=== PATIENT | female | born 1950 | race African-American/Black ===

== ENCOUNTER → 2016-08-08 | Outpatient (CLI) | payer MEDICARE, OTHER | LOC: SP 09:53 | PROVIDERS: ATTEND Podiatrist Foot Surgery | DX: I70.25 Atherosclerosis of native arteries of other extremities with ulceration (principal) | CPT/HCPCS: 93925 ==

== ENCOUNTER 2016-10-08 09:00 | Day surgery (SDC) | payer MEDICARE, OTHER ==
[2016-10-03 10:14] LABS: ABSOLUTE BASOPHILS # (AUTO) 0.1 10^3/uL (0.0-0.2); ABSOLUTE EOSINOPHILS # (AUTO) 0.2 10^3/uL (0.0-0.6); ABSOLUTE LYMPHOCYTES (AUTO) 2.4 10^3/uL (0.5-4.7); ABSOLUTE MONOCYTES (AUTO) 0.6 10^3/uL (0.1-1.4); ABSOLUTE NEUT (AUTO) 4.1 10^3/uL (1.7-8.2); BASOPHILS % (AUTO) 0.8 % (0-2); EOSINOPHILS % (AUTO) 2.6 % (0-6); HEMATOCRIT 36.8 % (36.0-47.0); HEMOGLOBIN 11.7 g/dL (12.0-15.5); HGB HCT DIFFERENCE -1.7; LYMPHOCYTES % (AUTO) 32.1 % (13-45); MEAN CORPUSCULAR HEMOGLOBIN 23.5 pg (27.0-33.4); MEAN CORPUSCULAR HGB CONC 31.9 g/dL (32.0-36.0); MEAN CORPUSCULAR VOLUME 74 fl (80-97); MONOCYTES % (AUTO) 8.7 % (3-13); RED BLOOD COUNT 4.99 10^6/uL (3.72-5.28); RED CELL DISTRIBUTION WIDTH 18.6 % (11.5-14.0); SEGMENTED NEUTROPHILS % (AUTO) 55.8 % (42-78); WHITE BLOOD COUNT 7.4 10^3/uL (4.0-10.5)
[2016-10-03 10:25] LABS: APPEARANCE,URINE SLIGHTLY-CLOUDY; BILIRUBIN,URINE NEGATIVE (NEGATIVE); GLUCOSE, URINE NEGATIVE (NEGATIVE); KETONES,URINE NEGATIVE (NEGATIVE); LEUKOCYTE ESTERASE,URINE NEGATIVE (NEGATIVE); NITRITE,URINE NEGATIVE (NEGATIVE); PROTEIN,URINE NEGATIVE (NEGATIVE); URINE SPECIFIC GRAVITY 1.024; UROBILINOGEN,URINE NEGATIVE mg/dL (<2.0)
[2016-10-03 10:36] LABS: ANION GAP 17 (5-19); BLOOD UREA NITROGEN 19 mg/dL (7-20); CALCIUM 10.8 mg/dL (8.4-10.2); CARBON DIOXIDE 26 mmol/L (22-30); CHLORIDE 99 mmol/L (98-107); CREATININE RESULT 0.79 mg/dL (0.52-1.25); GLUCOSE 121 mg/dL (75-110); POTASSIUM 3.7 mmol/L (3.6-5.0)
--- NOTE | 2016-10-03 10:39 | EKG REPORT ---
SEVERITY:- NORMAL ECG - SINUS RHYTHM : Confirmed by: Martine Tapia MD 03-Oct-2016 10:38:33
[~2016-10-08 09:00] MED LIST: LACTATED RINGERS 1000 ML IV PRN
[2016-10-08] MEDS ORDERED: CLINDAMYCIN 600 MG/D5W RTU 600 MG/50 ML RTUPB IV ONE (09:36)
[2016-10-08] MEDS ORDERED: BUPIVACAINE HCL 0.5 % INJ/PF 30 ML SDV ONE ×2 (10:35→11:24)
[2016-10-08] MEDS ORDERED: IBUPROFEN INJ 800 MG/8 ML VIAL IV ONE (10:48)
[2016-10-08] MEDS ORDERED: FENTANYL CITRATE INJ/PF 100 MCG/2 ML AMPUL ONE (10:48)
[2016-10-08] MEDS ORDERED: PROPOFOL INJ 200 MG/20 ML VIAL IV ONE (10:48)
[2016-10-08] MEDS ORDERED: MIDAZOLAM 2 MG/2 ML INJ ONE (10:48)
[2016-10-08] MEDS ORDERED: ONDANSETRON HCL INJ/PF 4 MG/2 ML SDV ONE (10:49)
[2016-10-08] MEDS ORDERED: DEXAMETHASONE SOD PHOSPHATE INJ 4 MG/1 ML VIAL ONE (10:49)
[2016-10-08] MEDS ORDERED: MORPHINE SULFATE 10 MG/ML INJ ONE (10:49)
[2016-10-08] MEDS ORDERED: DIPHENHYDRAMINE HCL 50 MG/ML VIAL IV PRN (11:22)
[2016-10-08] MEDS ORDERED: PROMETHAZINE HCL INJ 25 MG/1 ML VIAL IV PRN ×2 (11:22)
[2016-10-08] MEDS ORDERED: FENTANYL CITRATE INJ/PF 100 MCG/2 ML AMPUL IV PRN ×3 (11:22)
[2016-10-08] MEDS ORDERED: ONDANSETRON HCL INJ/PF 4 MG/2 ML SDV IV PRN ×2 (11:22→12:04)
[2016-10-08] MEDS ORDERED: MEPERIDINE HCL/PF INJ 25 MG/1 ML DISP.SYRIN IV PRN (11:22)
[2016-10-08] MEDS ORDERED: TRAMADOL HCL 50 MG TABLET PO PRN (12:04)
--- NOTE | 2016-10-08 12:07 | PDOC DISCHARGE SUMMARY ---
Discharge Summary (SDC) - Discharge Final Diagnosis: Left hand PIP joint capsulotomy with lateral band relocation Date of Surgery: 10/08/16 Discharge Date: 10/08/16 Condition: Good Treatment or Instructions: Schedule Follow Up w/ Dr. Bryan Park @ [facility] to be seen in 10-14 days or as scheduled [place]: [place]: [place]: Keep splint clean/dry/intact until OT follow-up Ice and elevate May begin finger range of motion attempting to make full fist. Stool softener of choice when on pain medication. Prescriptions: Tramadol HCl [Ultram 50 mg Tablet] 50 mg PO Q6HP PRN #40 tablet PRN Reason: Respiratory Treatments at Home: Deep Breathing/Coughing Report the Following to Your Physician Immediately: Fever over 101 Degrees, Unusual Bleeding, Swelling, Warmth, Increased Soreness
--- NOTE | 2016-10-08 12:30 | Operative Report ---
Operative Report DATE OF SURGERY: 10/08/16 PREOPERATIVE DIAGNOSIS: Left 4th/5th [place]ck Deformity w/ PIP Contracture POSTOPERATIVE DIAGNOSIS: Same OPERATION: Left 4th/5th PIP Capsulotomy w/ Lateral Band Relocation SURGEON: ARIES MYERS ANESTHESIA: LMAC COMPLICATIONS: None ESTIMATED BLOOD LOSS: minimal PROCEDURE: Indication for above procedure: 66-year-old female who sustained a fall onto her outstretched left hand. She states since that time she has been unable to bend her ring and small finger. She underwent occupational therapy which provide her some improvement but continued to have difficulty grasping objects. At that point we discussed treatment options including operative versus nonoperative intervention. Risks and benefits were explained to the patient who verbalized understanding and consented to the procedure. Procedure In Detail: Patient was seen and evaluated in the preoperative holding area. The left upper extremity was initialized and marked. Patient received 2g of Ancef IV for bacterial prophylaxis. Patient was taken back to the operative room where transferred to the operative table and placed under general anesthesia. Once they were adequately anesthetized a nonsterile tourniquet was placed on the upper extremity. A surgical team debriefing was performed ensuring all instrumentation was available, the surgical procedure was discussed with possible concerns reviewed. The upper extremity was prepped with chlorhexidine and alcohol and draped in a sterile fashion. A timeout was done identifying correct patient, procedure and extremity everyone in attendance agree with this and verbalized no concerns. Digital block was performed utilizing 10 cc of 0.5 % Marcaine of the fourth and fifth digits. The extremity was exsanguinated the tourniquet was inflated to 250 mmHg. A curved skin incision was made dorsally over the PIP joint of the small finger. Blunt dissection was performed maintaining any venous vasculature along the skin flap. Any remaining vasculature was coagulated with bipolar cautery. The extensor mechanism was then identified. A longitudinal split was made along the lateral bands maintaining the integrity of the central slip. With flexion of the digit I was then able to flex the finger allowing for displacement of the lateral bands. I then carefully elevated the central slip and performed a PIP joint capsulotomy would provide any further passive PIP joint flexion. The extrinsic insertion along the ulnar aspect of the PIP joint was then released further providing passive motion of the PIP joint. I then turned my attention to the ring finger. A similar curved skin incision was once again made that she was quite with bipolar cautery. Extensor mechanism was identified and a longitudinal split was made on either side of the central slip allowing the location of the lateral bands with flexion. PIP joint capsulotomy was performed releasing the insertion of the proper collateral ligaments radially and ulnarly which provided further PIP joint flexion. Similar to the fifth digit the intrinsic mechanism was released along the radial and ulnar aspect of the ring finger. Tourniquet was then deflated. Compression was placed for 2 minutes and the peripheral vasculature was coagulated with bipolar cautery. Patient was then awoken from MAC anesthesia and was able to perform a full composite fist to the distal palmar crease. There is no evidence of residual swan-neck deformity. Wound was irrigated with normal saline. Skin was closed with interrupted 4-0 nylon suture. Additional 5 cc of 0.5% Marcaine was injected. Was dressed with Xeroform 4 x 4's and patient was placed in a dorsal blocking splint maintaining PIP joint flexion of 30. Sponge counts, instrument counts, needle counts counts were correct. Patient was then awoken from anesthesia. Transferred from the operating room table to the operating room stretcher. There was no intraoperative complications patient tolerated procedure well stable to PACU. Postoperative plan: Patient will begin occupational therapy within 24-48 hours. At that point she will begin focusing on active DIP, PIP and MCP joint flexion. Will be placed in a dorsal blocking splint at 20 and begin active flexion medially preventing extension of the joint in neutral. After 3 weeks patient may increase extension to 10. At 6 weeks they may return to unrestricted motion.
[2016-10-08 13:57] VITALS: BP 118/75
== END 2016-10-08 14:00 | disposition home or self-care (01) ==
LOC: OROUT 09:00
PROVIDERS: ATTEND Orthopaedic Surgery
PROC: 0LX80ZZ Transfer Left Hand Tendon, Open Approach (ICD-10-PCS; 2016-10-08)
PROC: 0RNX0ZZ Release Left Finger Phalangeal Joint, Open Approach (ICD-10-PCS; principal; 2016-10-08 11:15)
DX: M25.549 Pain in joints of unspecified hand (principal); M20.032 Swan-neck deformity of left finger(s); I10 Essential (primary) hypertension; E11.9 Type 2 diabetes mellitus without complications; D64.9 Anemia, unspecified; Z79.899 Other long term (current) drug therapy; Z79.01 Long term (current) use of anticoagulants; Z88.1 Allergy status to other antibiotic agents; Z79.82 Long term (current) use of aspirin; Z79.84 Long term (current) use of oral hypoglycemic drugs
CPT/HCPCS: 93005; 36415 ×2; 82962; 84132; 85025; 85610; 85730; 80048; 81001; 93010; 26525 ×2; 26497; J2250; J1100; J3010; J2405; J2704; J1741; 1810; J2270

== ENCOUNTER → 2016-11-05 | Outpatient (CLI) | payer MEDICARE, OTHER | LOC: OD 07:59 | PROVIDERS: ATTEND Surgery Vascular Surgery | DX: Z51.81 Encounter for therapeutic drug level monitoring (principal); Z79.899 Other long term (current) drug therapy | CPT/HCPCS: 36415; 82565 ==

== ENCOUNTER → 2017-01-23 | Outpatient (CLI) | payer MEDICARE, OTHER ==
--- NOTE | 2017-01-23 09:23 | WOMENS IMAGING REPORT ---
EXAM DESCRIPTION: BILAT SCREENING MAMMO W/CAD COMPLETED DATE/TIME: 01/23/2017 9:01 am REASON FOR STUDY: SCREENING MAMMO Z12.31 ENCNTR SCREEN MAMMOGRAM FOR MALIGNANT NEOPLASM OF [place]LEE COMPARISON: Multiple since 2009 TECHNIQUE: Standard craniocaudal and mediolateral oblique views of each breast recorded using digita l acquisition. LIMITATIONS: None. FINDINGS: No masses, calcifications or architectural distortion. No areas of suspicion. Read with the assistance of CAD. .[facility] - R2 Cenova Version 1.3 .[facility] - R2 Cenova Version 1.3 .[facility] - R2 Cenova Version 2.4 .[facility] [place] R2 Cenova Version 2.4 .[facility] - R2 Director Of Analytical Development Version 9.2 IMPRESSION: NORMAL MAMMOGRAM. BIRADS 1. BREAST DENSITY: c. The breasts are heterogeneously dense, which may obscure small masses. BIRAD: 1 NEGATIVE RECOMMENDATION: ROUTINE SCREENING COMMENT: The patient has been notified of the results by letter per SA requirements. Additional no tification policies are in place for contacting patient with suspicious or incomplete findings. Quality ID #[id number]: The [employer] recommends an annual screening mammogram for women aged 40 years or over. This facility utilizes a reminder system to ensure that all patients receive reminder letters, and/or direct phone calls for appointments. This includes reminders for routine scr eening mammograms, diagnostic mammograms, or other Breast Imaging Interventions when appropriate. Th is patient will be placed in the appropriate reminder system. The [employer] (A[employer]) has developed recommendations for screening MRI of the breast s in certain patient populations, to be used in conjunction with mammography. Breast MRI surveillanc e may be appropriate for women with more than 20% lifetime risk of developing breast cancer as deter mined by genetic testing, significant family history of the disease, or history of mantle radiation f or Hodgkins Disease. ACR Practice Guidelines 2008. TECHNICAL DOCUMENTATION: FINDING NUMBER: (1) ASSESSMENT: (1) JOB ID: [id number] [employer]- All Rights Reserved
== END ==
LOC: WI 08:38
PROVIDERS: ATTEND Family Medicine
DX: Z12.31 Encounter for screening mammogram for malignant neoplasm of breast (principal)
CPT/HCPCS: 77067; G0202

== ENCOUNTER 2017-05-06 08:29 | Outpatient (CLI) | payer MEDICARE, OTHER ==
[~2017-05-06 08:29] MED LIST changes: +ACETAMINOPHEN 325 MG TABLET PO PRN; +FERRIC CARBOXYMALTOSE 750 MG in NORMAL SALINE 250 ML IV PRN; -LACTATED RINGERS 1000 ML IV PRN; +NORMAL SALINE 250 ML IV PRN
[2017-05-06 10:06] VITALS: BP 105/57
== END 2017-05-06 10:15 | disposition home or self-care (01) ==
LOC: II 08:29 → 5TH 08:30 → II 09:20
PROVIDERS: ATTEND Internal Medicine Hematology & Oncology
PROC: 3E033GC Introduction of Other Therapeutic Substance into Peripheral Vein, Percutaneous Approach (ICD-10-PCS; principal; 2017-05-06)
DX: D50.0 Iron deficiency anemia secondary to blood loss (chronic) (principal); K90.9 Intestinal malabsorption, unspecified
CPT/HCPCS: 96374; J7050; J1439; 96367

== ENCOUNTER → 2017-05-08 | Outpatient (CLI) | payer MEDICARE, OTHER | LOC: II 08:13 | PROVIDERS: ATTEND Internal Medicine Hematology & Oncology | DX: D50.0 Iron deficiency anemia secondary to blood loss (chronic) (principal); K90.9 Intestinal malabsorption, unspecified ==

== ENCOUNTER 2017-05-15 07:50 | Outpatient (CLI) | payer MEDICARE, OTHER ==
[2017-05-15] MEDS ORDERED: NORMAL SALINE 250 ML IV PRN (08:02)
[2017-05-15] MEDS ORDERED: FERRIC CARBOXYMALTOSE 750 MG in NORMAL SALINE 250 ML IV PRN (08:03)
[2017-05-15 08:15] VITALS: BP 139/78
== END 2017-05-15 09:20 | disposition home or self-care (01) ==
LOC: II 07:50 → 5TH 07:51 → II 09:20
PROVIDERS: ATTEND Internal Medicine Hematology & Oncology
PROC: 3E033GC Introduction of Other Therapeutic Substance into Peripheral Vein, Percutaneous Approach (ICD-10-PCS; principal; 2017-05-15)
DX: D50.0 Iron deficiency anemia secondary to blood loss (chronic) (principal); K90.9 Intestinal malabsorption, unspecified
CPT/HCPCS: 96367; J7050; J1439; 96365

== ENCOUNTER 2018-02-09 22:47 | Emergency (ER) | payer MEDICARE, OTHER ==
[2018-02-10] MEDS ORDERED: KETOROLAC TROMETHAMINE INJ/PF 30 MG/1 ML SDV IM ONE (00:29)
--- NOTE | 2018-02-10 00:31 | ER Document Report ---
ED General - General Chief Complaint: Foot Pain Stated Complaint: FOOT PAIN Time Seen by Provider: 02/10/18 00:21 Notes: Patient 67-year-old female presents with complaint of pain on the bottom of her foot that started last 24 hours. She is a history of gout but says it feels different. She has a history of plantar fasciitis and says it feels very similar to that. No recent injuries or trauma in the last 24 hours. She says approximately week ago a chair did fall on her foot but she has not had any pain from that. No other complaints at this time. TRAVEL OUTSIDE OF THE [place] IN LAST 30 DAYS: No - Related Data Allergies/Adverse Reactions: acetaminophen [From Percocet] Allergy (Verified 10/08/16 10:09) amoxicillin trihydrate [From Augmentin] Allergy (Verified 10/08/16 10:09) oxycodone [From Percocet] Allergy (Verified 10/08/16 10:09) Potassium Clavulanate * [From Augmentin] Allergy (Verified 10/08/16 10:09) Past Medical History - Social History Smoking Status: Never Smoker Frequency of alcohol use: None Drug Abuse: None Family History: Reviewed & Not Pertinent - Past Medical History Cardiac Medical History: Reports: Hx Hypercholesterolemia, Hx Hypertension, Hx Heart Murmur - Inactive Denies: Hx Coronary Artery Disease, Hx Heart Attack Pulmonary Medical History: Reports: Hx Sleep Apnea Denies: Hx Asthma, Hx Bronchitis, Hx COPD, Hx Pneumonia Neurological Medical History: Denies: Hx Cerebrovascular Accident, Hx Seizures Endocrine Medical History: Reports: Hx Diabetes Mellitus Type 2 GI Medical History: Reports: Hx Gastroesophageal Reflux Disease Musculoskeletal Medical History: Reports Hx Arthritis, Denies Hx Fibromyalgia, Reports Hx Gout, Reports Hx Musculoskeletal Trauma Past Surgical History: Reports: Hx Hysterectomy, Hx Neurologic Surgery - Left ulner, Hx Orthopedic Surgery, Hx Tonsillectomy - Immunizations Immunizations up to date: Yes Hx Diphtheria, Pertussis, Tetanus Vaccination: Yes Hx Pneumococcal Vaccination: 02/16/13 Review of Systems - Review of Systems Notes: My Normal Review Basic REVIEW OF SYSTEMS: CONSTITUTIONAL : Denies fever, chills, or sweats. Denies recent illness. MUSCULOSKELETAL: Pain over the plantar aspect of the left foot. SKIN: Denies rash or skin lesions. NEUROLOGICAL: Denies sensory or motor loss. ALL OTHER SYSTEMS REVIEWED AND NEGATIVE. Physical Exam - Vital signs Vitals: Temp Pulse Resp BP Pulse Ox 98.3 F 78 20 142/64 H 97 02/09/18 23:44 02/09/18 23:44 02/09/18 23:44 02/09/18 23:44 02/09/18 23:44 - Notes Notes: General Appearance: Well nourished, alert, cooperative, no acute distress, no obvious discomfort. Vitals: reviewed, See vital signs table. Extremities: strength 5/5 in all extremities, good pulses in all extremities, pain to palpation along the plantar fascia of the left foot. The remainder foot is nontender. No swelling or redness. Neuro: speech clear, oriented x 3, normal affect, responds appropriately to questions. Distal sensation intact. Patient can move all toes in the left foot without any difficulty. Course - Re-evaluation Re-evalutation: 02/10/18 07:16 Patient has what appears to be plantar fasciitis. I informed her to take over- the-counter NSAID medications. I talked about using a frozen Coke bottle to roll her foot over and to stretch out the plantar fascia. She has made an appointment to see a orthopedic brace maker. I encouraged her return to ER if she has pain spreading beyond the area of the plantar fascia, some swelling to her foot, redness, abnormal warmth, or any signs of infection. Patient agrees with plan will be discharged home. Dictation of this chart was performed using voice recognition software; therefore, there may be some unintended grammatical errors. - Vital Signs Vital signs: Temp Pulse Resp BP Pulse Ox 98.8 F 71 16 121/55 L 97 02/10/18 01:06 02/10/18 01:06 02/10/18 01:06 02/10/18 01:06 02/10/18 01:06 Discharge - Discharge Clinical Impression: Plantar fasciitis of left foot Condition: Good Disposition: HOME, SELF-CARE Additional Instructions: PLease take Ibuprofen 400mg every 6 hours. Take this with food. Please put water in a coke bottle and freeze it. Than roll your foot over the frozen coke bottle for about 5 minutes. Do this three times a day. Please return tot ER if you have increasing swelling in your foot, redness, or worsening pain. Follow up with your orthopedic brace maker.
[2018-02-10 01:07] VITALS: BP 121/55
== END 2018-02-10 01:15 | disposition home or self-care (01) ==
LOC: ER 22:47
DX: M72.2 Plantar fascial fibromatosis (principal); M79.672 Pain in left foot; E78.00 Pure hypercholesterolemia, unspecified; I10 Essential (primary) hypertension; E11.9 Type 2 diabetes mellitus without complications; Z88.6 Allergy status to analgesic agent; Z88.0 Allergy status to penicillin
CPT/HCPCS: 99283; 96372; J1885

== ENCOUNTER 2019-02-28 05:57 | Emergency (ER) | payer MEDICARE, OTHER ==
[2019-02-28] MEDS ORDERED: KETOROLAC TROMETHAMINE 60 MG/2 ML SDV IM ONE (08:08)
--- NOTE | 2019-02-28 08:13 | ER Document Report ---
ED General - General Chief Complaint: Back Pain Stated Complaint: LOWER BACK PAIN Time Seen by Provider: 02/28/19 07:49 Primary Care Provider: SYEDA GARRETT MD [Primary Care Provider] - Follow up as needed Notes: 68-year-old female presents emergency department complaining of left-sided low back pain radiating to her left leg and somewhat of the left side of her back. This onset last night around 10 PM and she describes it as a thumping type of pain. States that she was able to sleep for part of the evening but then when she woke up it was worse. Patient denies any weakness, denies difficulty walking or increasing pain when she walks. Denies any numbness or tingling, denies any bowel or bladder dysfunction, denies any foot drop, denies any fevers. Worsens when she sits on that left hand side. Denies any rash. TRAVEL OUTSIDE OF THE [place] IN LAST 30 DAYS: No - Related Data Allergies/Adverse Reactions: acetaminophen [From Percocet] Allergy (Verified 10/08/16 10:09) amoxicillin trihydrate [From Augmentin] Allergy (Verified 10/08/16 10:09) oxycodone [From Percocet] Allergy (Verified 10/08/16 10:09) Potassium Clavulanate * [From Augmentin] Allergy (Verified 10/08/16 10:09) Past Medical History - General Information source: Patient - Social History Smoking Status: Never Smoker Frequency of alcohol use: None Drug Abuse: None Family History: Reviewed & Not Pertinent Patient has suicidal ideation: No Patient has homicidal ideation: No - Past Medical History Cardiac Medical History: Reports: Hx Hypercholesterolemia, Hx Hypertension, Hx Heart Murmur - Inactive Denies: Hx Coronary Artery Disease, Hx Heart Attack Pulmonary Medical History: Reports: Hx Sleep Apnea Denies: Hx Asthma, Hx Bronchitis, Hx COPD, Hx Pneumonia Neurological Medical History: Denies: Hx Cerebrovascular Accident, Hx Seizures Endocrine Medical History: Reports: Hx Diabetes Mellitus Type 2 Renal/ Medical History: Denies: Hx Peritoneal Dialysis GI Medical History: Reports: Hx Gastroesophageal Reflux Disease Musculoskeletal Medical History: Reports Hx Arthritis, Denies Hx Fibromyalgia, Reports Hx Gout, Reports Hx Musculoskeletal Trauma Past Surgical History: Reports: Hx Hysterectomy, Hx Neurologic Surgery - Left ulner, Hx Orthopedic Surgery, Hx Tonsillectomy - Immunizations Immunizations up to date: Yes Hx Diphtheria, Pertussis, Tetanus Vaccination: Yes Hx Pneumococcal Vaccination: 02/16/13 Review of Systems - Review of Systems Constitutional: No symptoms reported Gastrointestinal: No symptoms reported Genitourinary: No symptoms reported Musculoskeletal: See HPI -: Yes All other systems reviewed and negative Physical Exam - Vital signs Vitals: Temp Pulse Resp BP Pulse Ox 98.1 F 74 16 117/63 99 02/28/19 06:07 02/28/19 06:07 02/28/19 06:07 02/28/19 06:07 02/28/19 06:07 Interpretation: Normal - Notes Notes: GENERAL: Alert, interacts well. No acute distress. HEAD: Normocephalic, atraumatic EYES: Pupils equal, round and reactive to light, extraocular movements intact. ENT: Oral mucosa moist, tongue midline. NECK: Full range of motion, supple, trachea midline. LUNGS: Clear to auscultation bilaterally, no wheezes, rales or rhonchi, no respiratory distress. HEART: Regular rate and rhythm, no murmurs, gallops, rubs. ABDOMEN: Soft, nontender, nondistended, bowel sounds present in all 4 quadrants. EXTREMITIES: Moves all 4 extremities spontaneously, no edema, radial and dorsalis pedis pulses 2/4 bilaterally. No cyanosis. NEUROLOGICAL: Alert and oriented x3, normal speech, patellar DTRs 2+ bilaterally. Negative straight leg raising test, 5 out of 5 great toe raising muscle strength, 5 out of 5 strength in the lower extremities bilaterally, no saddle anesthesia, sensation intact. PSYCH: Normal mood, normal affect. SKIN: Warm, Dry, normal turgor, no rashes or lesions noted. Course - Re-evaluation Re-evalutation: 02/28/19 08:10 No red flag symptoms, no evidence of cauda equina syndrome, treat with Toradol and Robaxin, consistent with sciatica, discharged home. - Vital Signs Vital signs: Temp Pulse Resp BP Pulse Ox 98.1 F 74 16 117/63 99 02/28/19 06:07 02/28/19 06:07 02/28/19 06:07 02/28/19 06:07 02/28/19 06:07 Discharge - Discharge Clinical Impression: Left-sided low back pain with sciatica Qualifiers: Chronicity: acute Sciatica laterality: sciatica of left side Qualified Code(s): M54.42 - Lumbago with sciatica, left side Condition: Stable Disposition: HOME, SELF-CARE Additional Instructions: Sciatica Your symptoms suggest "sciatica." The pain of sciatica typically radiates down the leg. Numbness in the foot or calf may also occur. Sciatica is caused by irritation of the sciatic nerve or its branches. The irritation can be due to a herniated disk in the spine, swelling and inflammation in the muscles surrounding the sciatic nerve, or direct injury of the nerve itself. Most cases of sciatica will resolve with medical treatment. Bed rest is usually recommended initially. Surgery is only necessary when the condition will not improve with rest and antiinflammatory medication. Muscle relaxers are often given if muscle soreness is present. Re-examination is necessary if you develop increasing numbness, localized weakness in the foot or ankle, or if the pain does not respond to rest. You may use ibuprofen 6 mg every 8 hours as needed for pain. Please take this with food. Do not use it for more than 5 days in a row. Prescriptions: Methocarbamol [Robaxin 750 mg Tablet] 1 - 2 mg PO Q8HP PRN #40 tablet PRN Reason: Muscle Spasms Referrals: SYEDA GARRETT MD [Primary Care Provider] - Follow up as needed
[2019-02-28 08:52] VITALS: BP 112/61
== END 2019-02-28 08:50 | disposition home or self-care (01) ==
LOC: ER 05:57
DX: M54.42 Lumbago with sciatica, left side (principal); I10 Essential (primary) hypertension; E11.9 Type 2 diabetes mellitus without complications; Z88.8 Allergy status to other drugs, medicaments and biological substances; Z88.0 Allergy status to penicillin; Z88.5 Allergy status to narcotic agent
CPT/HCPCS: J1885

== ENCOUNTER 2019-12-13 20:54 | Emergency (ER) | payer MEDICARE, OTHER ==
[2019-12-13 22:18] LABS: ABSOLUTE BASOPHILS # (AUTO) 0.1 10^3/uL (0.0-0.2); ABSOLUTE EOSINOPHILS # (AUTO) 0.2 10^3/uL (0.0-0.6); ABSOLUTE LYMPHOCYTES (AUTO) 2.2 10^3/uL (0.5-4.7); ABSOLUTE NEUT (AUTO) 5.2 10^3/uL (1.7-8.2); BASOPHILS % (AUTO) 1.1 % (0-2); EOSINOPHILS % (AUTO) 1.8 % (0-6); HEMOGLOBIN 9.9 g/dL (12.0-15.5); LYMPHOCYTES % (AUTO) 25.1 % (13-45); MEAN CORPUSCULAR HEMOGLOBIN 23.5 pg (27.0-33.4); MEAN CORPUSCULAR HGB CONC 31.1 g/dL (32.0-36.0); MEAN CORPUSCULAR VOLUME 76 fl (80-97); MONOCYTES % (AUTO) 12.1 % (3-13); PLATELET COUNT 335 10^3/uL (150-450); RED BLOOD COUNT 4.24 10^6/uL (3.72-5.28); RED CELL DISTRIBUTION WIDTH 18.6 % (11.5-14.0); SEGMENTED NEUTROPHILS % (AUTO) 59.9 % (42-78); TOTAL CELLS COUNTED % (AUTO) 100 %; WHITE BLOOD COUNT 8.6 10^3/uL (4.0-10.5)
[2019-12-13 22:29] LABS: INTERNATIONAL RATION (INR) 0.93; PROTHROMBIN TIME 12.5 SEC (11.4-15.4)
[2019-12-13 22:45] LABS: ALBUMIN 4.4 g/dL (3.5-5.0); ALKALINE PHOSPHATASE 67 U/L (38-126); ANION GAP 7 (5-19); ASPARTATE AMINO TRANSFERASE 20 U/L (14-36); BILIRUBIN,TOTAL 0.4 mg/dL (0.2-1.3); BLOOD UREA NITROGEN 21 mg/dL (7-20); CARBON DIOXIDE 27 mmol/L (22-30); CHLORIDE 105 mmol/L (98-107); CREATINE KINASE 109 U/L (30-135); GLUCOSE 99 mg/dL (75-110); TOTAL PROTEIN 7.4 g/dL (6.3-8.2)
[2019-12-13 22:57] LABS: CREATINE KINASE MB 1.12 ng/mL (<4.55)
[2019-12-13 23:02] LABS: TROPONIN I < 0.012 ng/mL
--- NOTE | 2019-12-14 04:13 | ER Document Report ---
ED General - General Chief Complaint: Feet Swelling Stated Complaint: LEFT/RIGHT ANKLE INJURY Primary Care Provider: SYEDA GARRETT MD [Primary Care Provider] - Follow up as needed TRAVEL OUTSIDE OF THE [place] IN LAST 30 DAYS: No - HPI Notes: 69-year-old female history of hypertension hyperlipidemia diabetes PVD with bilateral femoral stents presents with approximately 3 days of bilateral ankle swelling. Patient says swelling has caused burning sensation in the bilateral soles of her feet and it is uncomfortable for her to wear shoes. Patient otherwise feels well. Had vascular follow-up 2 months ago without problems. Patient denies any CHF history, renal history, liver history, chest pain, shortness of breath, cough, change in weight, injury (chief complaint is listed as injury which is incorrect), DVT/PE/hypercoag history, recent travel/surgery/immobilization - Related Data Allergies/Adverse Reactions: acetaminophen [From Percocet] Allergy (Verified 10/08/16 10:09) amoxicillin trihydrate [From Augmentin] Allergy (Verified 10/08/16 10:09) oxycodone [From Percocet] Allergy (Verified 10/08/16 10:09) Potassium Clavulanate * [From Augmentin] Allergy (Verified 10/08/16 10:09) Home Medications: plavix,allopurinal, asa, lisinopril/hctz, metformin, amlopidine. atorvastatin, vitamin d3 Past Medical History - General Information source: Patient - Social History Smoking Status: Never Smoker Frequency of alcohol use: None Drug Abuse: None Family History: Reviewed & Not Pertinent Patient has homicidal ideation: No - Past Medical History Cardiac Medical History: Reports: Hx Hypercholesterolemia, Hx Hypertension, Hx Heart Murmur - Inactive Denies: Hx Coronary Artery Disease, Hx Heart Attack Pulmonary Medical History: Reports: Hx Sleep Apnea Denies: Hx Asthma, Hx Bronchitis, Hx COPD, Hx Pneumonia Neurological Medical History: Denies: Hx Cerebrovascular Accident, Hx Seizures Endocrine Medical History: Reports: Hx Diabetes Mellitus Type 2 Renal/ Medical History: Denies: Hx Peritoneal Dialysis GI Medical History: Reports: Hx Gastroesophageal Reflux Disease Musculoskeletal Medical History: Reports Hx Arthritis, Denies Hx Fibromyalgia, Reports Hx Gout, Reports Hx Musculoskeletal Trauma Past Surgical History: Reports: Hx Hysterectomy, Hx Neurologic Surgery - Left ulner, Hx Orthopedic Surgery, Hx Tonsillectomy - Immunizations Immunizations up to date: Yes Hx Diphtheria, Pertussis, Tetanus Vaccination: Yes Hx Pneumococcal Vaccination: 02/16/13 Review of Systems - Review of Systems Notes: REVIEW OF SYSTEMS: CONSTITUTIONAL : Denies fever, chills, or sweats. EENT: Denies recent cold/sinus symptoms, denies throat pain CARDIOVASCULAR: Denies chest pain, DEVIN RESPIRATORY: Denies cough, denies shortness of breath. GASTROINTESTINAL: Denies abdominal pain, nausea/vomiting. GENITOURINARY: Denies difficulty urinating, painful urination. FEMALE GENITOURINARY: Denies abnormal vaginal bleeding, vaginal discharge. MUSCULOSKELETAL: Denies neck pain, back pain. SKIN: Denies rash or skin lesions. HEMATOLOGIC : Denies easy bruising or bleeding. LYMPHATIC: Denies swollen, enlarged glands. NEUROLOGICAL: Denies headache, denies change in gait. PSYCHIATRIC: Denies anxiety or stress or depression. Physical Exam - Vital signs Vitals: Temp Pulse Resp BP Pulse Ox 98.8 F 79 20 136/59 H 98 12/13/19 21:24 12/13/19 21:24 12/13/19 21:24 12/13/19 21:24 12/13/19 21:24 - Notes Notes: PHYSICAL EXAMINATION: GENERAL: Well-appearing, well-nourished, appearing stated age sitting up in str etcher without any visible signs of discomfort and in no acute distress. HEAD: Atraumatic, normocephalic. EYES: Pupils equal round and appropriate constriction, sclera anicteric, conjunctiva are normal. ENT: nares patent, moist mucous membranes. NECK: Normal range of motion, supple without lymphadenopathy LUNGS: Breath sounds clear to auscultation bilaterally and equal. No wheezes rales or rhonchi. HEART: Regular rate and rhythm with systolic ejection murmur loudest over aortic area ABDOMEN: Soft, nontender, no guarding, no masses, no CVAT EXTREMITIES: Normal range of motion, no perceptible edema, DP pulses 2+ bilaterally, skin intact, normal strength and sensation, no calf tenderness NEUROLOGICAL: Awake, alert, conversing appropriately, moves all extremities spontaneously. PSYCH: Normal mood, normal affect. SKIN: Warm, Dry, normal turgor, no rashes or lesions noted. Course - Re-evaluation Re-evalutation: 12/14/19 04:11 Bilateral 3 days foot swelling and burning pain in the soles of feet without any perceptible edema on exam, able to feel patient's extensor tendons on bilateral feet. Given low risk will obtain dimer for rule out DVT but low pretest probability. Obtain labs to rule out new onset CHF, renal failure, liver failure, which showed no abnormalities. Patient slightly more anemic with normal which patient says she has been following with her primary doctor and she has been receiving iron transfusions for this. Patient has no sources of bleeding currently. Symptoms most likely secondary to diabetic neuropathy, but have instructed patient to follow-up closely with her vascular surgeon in case pain is related to her bilateral femoral stents. No vascular emergency curren tly however as patient with strong palpable pulses bilaterally. 12/14/19 05:14 D-dimer negative and low pretest probability for DVT. Patient ready to be discharged. I gave patient extensive return to ED precautions which she demonstrated understanding of. Instructed patient to follow-up with PCP and vascular surgeon which she is agreed to. Will give copy of all results. - Vital Signs Vital signs: Temp Pulse Resp BP Pulse Ox 98.1 F 58 L 18 134/65 H 97 12/14/19 06:42 12/14/19 06:42 12/14/19 06:42 12/14/19 06:42 12/14/19 06:42 - Laboratory Result Diagrams: 12/13/19 22:04 12/13/19 22:04 Laboratory results interpreted by me: 12/13/19 12/13/19 22:04 22:04 Hgb 9.9 L Hct 32.0 L MCV 76 L MCH 23.5 L MCHC 31.1 L RDW 18.6 H BUN 21 H - EKG Interpretation by Me Additional EKG results interpreted by me: 12/14/19 03:30 Heart rate 60, normal sinus rhythm, no significant ST elevations or depressions, QTC 440 Discharge - Discharge Clinical Impression: Foot swelling Disposition: HOME, SELF-CARE Additional Instructions: Edema, Peripheral You have swelling in your legs. This is called peripheral edema. It can be caused by "leaky capillaries," inflammation, disease of the leg veins, or excess salt and water in your body. Edema may be a sign of heart, kidney, or liver disease. A medical evaluation can determine if there is a serious underlying cause for your edema. Avoid prolonged standing. If you must sit for a long time, occasionally get up and walk around or elevate your legs. Support stockings can be helpful in limiting swelling. Often diuretic or water pills are used to remove excess salt and water from your body. Call the doctor or return if you develop increased swelling, pain, or redness, shortness of breath, chest pain, or any other significant change. Follow-up with your primary doctor and vascular surgeon within 2 weeks. Referrals: SYEDA GARRETT MD [Primary Care Provider] - Follow up as needed
[2019-12-14 06:44] VITALS: BP 134/65
--- NOTE | 2019-12-14 10:11 | EKG REPORT ---
SEVERITY:- NORMAL ECG - SINUS RHYTHM : Confirmed by: Martine Tapia MD 14-Dec-2019 10:10:28
== END 2019-12-14 06:42 | disposition home or self-care (01) ==
LOC: ER 20:54
DX: M79.89 Other specified soft tissue disorders (principal); E78.00 Pure hypercholesterolemia, unspecified; I10 Essential (primary) hypertension; E11.9 Type 2 diabetes mellitus without complications; Z90.710 Acquired absence of both cervix and uterus; Z79.02 Long term (current) use of antithrombotics/antiplatelets
CPT/HCPCS: 36415; 80053; 82550; 82553; 83880; 84484; 85025; 85379; 85610; 93005; 93010; 99283

== ENCOUNTER 2020-02-01 07:17 | Day surgery (SDC) | payer MEDICARE, OTHER ==
--- NOTE | 2020-01-26 11:19 | EKG REPORT ---
SEVERITY:- NORMAL ECG - SINUS RHYTHM Borderline LVH : Confirmed by: Carlos Sheikh MD 26-Jan-2020 11:18:42
[2020-01-26 12:11] LABS: APPEARANCE,URINE SLIGHTLY-CLOUDY; BILIRUBIN,URINE NEGATIVE (NEGATIVE); COLOR,URINE YELLOW; GLUCOSE, URINE NEGATIVE (NEGATIVE); KETONES,URINE NEGATIVE (NEGATIVE); LEUKOCYTE ESTERASE,URINE TRACE (NEGATIVE); NITRITE,URINE NEGATIVE (NEGATIVE); PROTEIN,URINE NEGATIVE (NEGATIVE); URINE SPECIFIC GRAVITY 1.021; UROBILINOGEN,URINE NEGATIVE mg/dL (<2.0)
[2020-01-26 12:16] LABS: HEMATOCRIT 35.4 % (36.0-47.0); HEMOGLOBIN 11.6 g/dL (12.0-15.5); MEAN CORPUSCULAR HEMOGLOBIN 25.1 pg (27.0-33.4); MEAN CORPUSCULAR HGB CONC 32.7 g/dL (32.0-36.0); MEAN CORPUSCULAR VOLUME 77 fl (80-97); PLATELET COUNT 260 10^3/uL (150-450); RED BLOOD COUNT 4.62 10^6/uL (3.72-5.28); RED CELL DISTRIBUTION WIDTH 21.3 % (11.5-14.0)
[2020-01-26 12:23] LABS: ANION GAP 12 (5-19); BLOOD UREA NITROGEN 17 mg/dL (7-20); CARBON DIOXIDE 27 mmol/L (22-30); CHLORIDE 101 mmol/L (98-107); GLUCOSE 111 mg/dL (75-110); POTASSIUM 3.9 mmol/L (3.6-5.0)
--- NOTE | 2020-01-26 12:24 | RADIOLOGY REPORT (SQ) ---
EXAM DESCRIPTION: CHEST PA/LATERAL IMAGES COMPLETED DATE/TIME: 01/26/2020 11:34 am REASON FOR STUDY: PRE-OP COMPARISON: 09/30/2015 EXAM PARAMETERS: NUMBER OF VIEWS: two views TECHNIQUE: Digital Frontal and Lateral radiographic views of the chest acquired. RADIATION DOSE: NA LIMITATIONS: none FINDINGS: LUNGS AND PLEURA: No opacities, masses or pneumothorax. No pleural effusion. MEDIASTINUM AND HILAR STRUCTURES: No masses or contour abnormalities. HEART AND VASCULAR STRUCTURES: The heart size is borderline. There is no pulmonary edema. BONES: No acute findings. HARDWARE: None in the chest. OTHER: No other significant finding. IMPRESSION: Borderline cardiomegaly without pulmonary edema. No change in the appearance the chest from the prior study. TECHNICAL DOCUMENTATION: JOB ID: [id number] 2010 [employer]- All Rights Reserved Reading location - IP/workstation name: [email or web address]
[~2020-02-01 07:17] MED LIST changes: -ACETAMINOPHEN 325 MG TABLET PO PRN; +CLINDAMYCIN 600 MG/D5W RTU 600 MG/50 ML RTUPB IV ONE; +CLINDAMYCIN 600 MG/D5W RTU 600 MG/50 ML RTUPB IV PRN; +FENTANYL CITRATE INJ/PF 100 MCG/2 ML AMPUL ONE; -FERRIC CARBOXYMALTOSE 750 MG in NORMAL SALINE 250 ML IV PRN; +LACTATED RINGERS 1000 ML IV PRN; +LIDOCAINE 0.5% INJ-PF (5 MG/ML) 50 ML SDV SUBCUT PRN; +MIDAZOLAM 2 MG/2 ML INJ ONE; -NORMAL SALINE 250 ML IV PRN; +ONDANSETRON HCL INJ/PF 4 MG/2 ML SDV ONE; +PROPOFOL INJ 200 MG/20 ML VIAL IV ONE
[2020-02-01] MEDS ORDERED: LIDOCAINE 1% INJ-PF (10 MG/ML) 30 ML SDV ONE (08:31)
[2020-02-01] MEDS ORDERED: BUPIVACAINE HCL 0.5 % INJ/PF 30 ML SDV ONE (08:31)
[2020-02-01 08:38] LABS: POTASSIUM 3.6 mmol/L (3.6-5.0)
[2020-02-01 08:39] LABS: INTERNATIONAL RATION (INR) 0.91; PROTHROMBIN TIME 12.5 SEC (11.4-15.4)
[2020-02-01 08:40] LABS: PARTIAL THROMBOPLASTIN TIME 33.1 SEC (23.5-35.8)
[2020-02-01] MEDS ORDERED: FENTANYL CITRATE INJ/PF 100 MCG/2 ML AMPUL IV PRN ×3 (09:14)
[2020-02-01] MEDS ORDERED: PROMETHAZINE HCL INJ 25 MG/1 ML VIAL IV PRN ×2 (09:14)
[2020-02-01] MEDS ORDERED: DIPHENHYDRAMINE HCL 50 MG/ML VIAL IV PRN (09:14)
[2020-02-01] MEDS ORDERED: ONDANSETRON HCL INJ/PF 4 MG/2 ML SDV IV PRN (09:14)
[2020-02-01] MEDS ORDERED: MEPERIDINE HCL/PF INJ 25 MG/1 ML DISP.SYRIN IV PRN (09:14)
--- NOTE | 2020-02-01 11:49 | Discharge Summary ---
Discharge Summary (SDC) - Discharge Final Diagnosis: Left trigger thumb Date of Surgery: 02/01/20 Discharge Date: 02/01/20 Condition: Good Forms: ASU Anesthesia D/C Instruction, Discharge POC-Surgical Service Treatment or Instructions: Schedule Follow Up w/ Dr. Bryan Myers @ [facility] for [facility] to be seen in 10-14 days or as scheduled [place]: [place]: [place]: May remove dressing on postop day #3, keep incision covered and dry. Ice and elevate May begin finger range of motion attempting to make full fist. Stool softener of choice when on pain medication. USE OF MYDM-EMK-IYBADVM IBUPROFEN: Ibuprofen (Advil, Nuprin, Medipren, Motrin IB) is a medication for fever and pain control. In addition, it has anti- inflammatory effects which may be beneficial, especially in the treatment of injuries. It's best to take ibuprofen with food. Persons with ulcer disease or allergy to aspirin should notify their physician of this before taking ibuprofen. Ibuprofen can be given every four to six hours, for a total of four doses daily. Age Pain or fever dose Antiinflammatory dose 6-8 yr 200 mg (1 tab) 200 mg (1 tab) 9-11 yr 200 mg (1 tab) 200-400 mg (1-2 tab) 11-14 yr 200-400 mg (1-2 tab) 400 mg (2 tab) 15-adult 400 mg (2 tab) 600 mg (3 tab) ORAL NARCOTIC MEDICATION: You have been given a prescription for pain control. This medication is a narcotic. It's best taken with food, as nausea can result if taken on an empty stomach. Don't operate machinery or drive within six hours of taking this medication. Do not combine this medicine with alcohol, or with any medication which can cause sedation (such as cold tablets or sleeping pills) unless you get permission from the physician. Narcotics tend to cause constipation. If possible, drink plenty of fluids and eat a diet high in fiber and fruits. Please be aware that prescription narcotics also have the potential for abuse. People become addicted to these medications because of the general sense of wellbeing that they induce. This feeling along with a significant reduction in tension, anxiety, and aggression provides a stimulating seductive quality to these drugs. Once your pain is under control, we encourage you to discard your unused narcotics. Prescriptions: Hydrocodone/Acetaminophen [[place] 5-325 mg Tablet] 1 tab PO Q6 PRN #10 tablet PRN Reason: Referrals: BRYAN MYERS DO [ACTIVE STAFF] - Discharge Diet: As Tolerated Respiratory Treatments at Home: Deep Breathing/Coughing Discharge Activity: No Lifting Over 10 Pounds, No Lifting/Push/Pulling Report the Following to Your Physician Immediately: Fever over 101 Degrees, Unusual Bleeding, Redness, Swelling, Warmth, Increased Soreness
--- NOTE | 2020-02-01 11:49 | Operative Report ---
Operative Report DATE OF SURGERY: 02/01/20 PREOPERATIVE DIAGNOSIS: Left trigger thumb POSTOPERATIVE DIAGNOSIS: Same OPERATION: A1 zachariah release left thumb SURGEON: ARIES MYERS ANESTHESIA: LMAC COMPLICATIONS: None ESTIMATED BLOOD LOSS: Minimal PROCEDURE: Indication for above procedure: 69-year-old female with catching and locking in her left thumb. Patient attempts are management including injections and activity modification without resolution of her symptoms at that point decision was made to proceed with operative intervention. Risk and benefits were explained patient verbalized understanding consented for surgical procedure. Procedure In Detail: Patient was seen and evaluated in the preoperative holding area. The LEFT upper extremity was initialized and marked. Patient received clindamycin 600 mg IV for bacterial prophylaxis. Patient was taken back to the operative room where transferred to the operative table. Once they were adequately anesthetized a nonsterile tourniquet was placed on the upper extremity. A surgical team debriefing was performed ensuring all instrumentation was available, the surgical procedure was discussed with possible concerns reviewed. A digital block was performed utilizing 10 mL of 1% lidocaine without epinephrine. The upper extremity was prepped with chlorhexidine and alcohol and draped in a sterile fashion. A timeout was done identifying correct patient, procedure and extremity everyone in attendance agree with this and verbalized no concerns. The extremity was exsanguinated the tourniquet was inflated to 250 mmHg. Transverse skin incision was made centered over the A1 zachariah of the left thumb. The radial and ulnar neurovascular bundles were identified and retracted from the wound. The A1 zachariah was identified and incised. The A1 zachariah was released to the level of the oblique zachariah but not through the oblique zachariah. The palmar aponeurotic zachariah was released proximal to the A1 zachariah. Patient was then awoken from MAC anesthesia and made a full hot stamp operator there is no evidence of residual triggering or locking. The wound was then copiously irrigated with n ormal saline. Skin was closed with interrupted 4-0 nylon suture. Wound was dressed with Xeroform and a soft dressing. Sponge counts, instrument counts, needle counts counts were correct. Patient w as then awoken from anesthesia. Transferred from the operating room table to the operating room stretcher. There was no intraoperative complications patient tolerated procedure well stable to PACU. Postoperative plan: Patient will follow-up as scheduled for wound check. They will call with any questions or concerns.
[2020-02-01 12:06] VITALS: BP 119/63
== END 2020-02-01 11:15 | disposition home or self-care (01) ==
LOC: OROUT 07:17
PROVIDERS: ATTEND Orthopaedic Surgery
DX: M65.312 Trigger thumb, left thumb (principal); E11.9 Type 2 diabetes mellitus without complications; E78.00 Pure hypercholesterolemia, unspecified; I10 Essential (primary) hypertension; R01.1 Cardiac murmur, unspecified; D64.9 Anemia, unspecified; Z79.899 Other long term (current) drug therapy; Z79.82 Long term (current) use of aspirin; Z88.1 Allergy status to other antibiotic agents; Z79.84 Long term (current) use of oral hypoglycemic drugs; Z03.818 Encounter for observation for suspected exposure to other biological agents ruled out
CPT/HCPCS: 93005; 36415 ×2; 82947; 84132; 85027; 85610; 85730; 80048; 81001; 83036; 71046; 93010; 01810; 26055; U0003; J2250; J3010; J3490; J2405; J2704; C9803; 1810; 87635

== ENCOUNTER 2020-02-02 21:58 | Emergency (ER) | payer MEDICARE, OTHER ==
--- NOTE | 2020-02-02 23:09 | ER Document Report ---
ED Medical Screen (RME) - General Chief Complaint: Breast Problem Stated Complaint: LEFT BREAST PAIN Time Seen by Provider: 02/02/20 23:03 Primary Care Provider: SYEDA GARRETT MD [Primary Care Provider] - Follow up as needed Notes: Patient is a 69-year-old female who presents emergency department with a chief complaint of breast pain. Patient reports throughout the day she gradually developed left breast pain. Patient reports she is unable to lay on the side due to the pain. Patient reports it is tender to touch. Patient states she has never had a any nipple discharge. Denies history of breast cancer. TRAVEL OUTSIDE OF THE [place] IN LAST 30 DAYS: No - Related Data Allergies/Adverse Reactions: amoxicillin trihydrate [From Augmentin] Allergy (Verified 02/01/20 07:29) oxycodone [From Percocet] Allergy (Verified 02/01/20 07:29) Potassium Clavulanate * [From Augmentin] Allergy (Verified 02/01/20 07:29) Past Medical History - Social History Family history: Other - Gout - Past Medical History Cardiac Medical History: Reports: Hx Hypercholesterolemia, Hx Hypertension, Hx Heart Murmur - Inactive Denies: Hx Coronary Artery Disease, Hx Heart Attack Pulmonary Medical History: Reports: Hx Sleep Apnea Denies: Hx Asthma, Hx Bronchitis, Hx COPD, Hx Pneumonia Neurological Medical History: Denies: Hx Cerebrovascular Accident, Hx Seizures Endocrine Medical History: Reports: Hx Diabetes Mellitus Type 2 Renal/ Medical History: Denies: Hx Peritoneal Dialysis GI Medical History: Reports: Hx Gastroesophageal Reflux Disease Musculoskeltal Medical History: Reports Hx Arthritis, Denies Hx Fibromyalgia, Reports Hx Gout, Reports Hx Musculoskeletal Trauma Past Surgical History: Reports: Hx Hysterectomy, Hx Neurologic Surgery - Left ulner, Hx Orthopedic Surgery, Hx Tonsillectomy - Immunizations Immunizations up to date: Yes Hx Diphtheria, Pertussis, Tetanus Vaccination: Yes Physical Exam - Vital signs Vitals: Temp Pulse Resp BP Pulse Ox 99.4 F 87 18 141/64 H 97 02/02/20 22:36 02/02/20 22:36 02/02/20 22:36 02/02/20 22:36 02/02/20 22:36 Course - Re-evaluation Re-evalutation: 02/02/20 23:08 I have greeted and performed a rapid initial assessment of this patient. A comprehensive ED assessment and evaluation of the patient, analysis of test results and completion of the medical decision making process will be conducted by additional ED providers. - Vital Signs Vital signs: Temp Pulse Resp BP Pulse Ox 99.4 F 87 18 141/64 H 97 02/02/20 22:36 02/02/20 22:36 02/02/20 22:36 02/02/20 22:36 02/02/20 22:36 Doctor's Discharge - Discharge Referrals: SYEDA GARRETT MD [Primary Care Provider] - Follow up as needed
--- NOTE | 2020-02-03 00:36 | RADIOLOGY REPORT (SQ) ---
Left breast ultrasound: 02/02/2020 11:32 PM CDT COMPARISON: None available TECHNIQUE: Multiple grayscale images of the the area(s) of interest within the left breast were obtained. HISTORY: 89-year-old patient with left breast tenderness. FINDINGS: There is an ill-defined hypoechoic area at the retroareolar region which may have some calcifications. This measures up to 1.3 x 1.1 x 1.6 cm. This has ill-defined margins and extends into the skin. There is increased internal peripheral vascularity. There are prominent ducts leading to this area. There may be some debris within several of the ducts seen nearby. Concerning for a mass. IMPRESSION: There is a hypoechoic area within the left breast retroareolar region concerning for a mass. This may have internal calcifications. There are prominent ducts leading to this area. Correlation with mammography and possible axillary lymph noted ultrasound is recommended. BI-RADS Category 0: Needs additional imaging Recommendation: The patient should return for diagnostic mammogram and left axilla ultrasound to assess for any other additional findings. Biopsy of the area will likely be warranted.
--- NOTE | 2020-02-03 09:21 | ER Document Report ---
ED General - General Chief Complaint: Breast Problem Stated Complaint: LEFT BREAST PAIN Time Seen by Provider: 02/02/20 23:03 Primary Care Provider: SYEDA KUMAR MD [Primary Care Provider] - Follow up as needed TRAVEL OUTSIDE OF THE [place] IN LAST 30 DAYS: No - HPI Notes: Chief complaint: Pain left breast History of present illness: 69-year-old female with no known prior history of breast disease and reporting a normal mammography 11 months ago now presents with 24-hour history of pain in left breast posterior to the nipple. She denies any discharge. Patient has had recent surgery for release of a trigger finger involving her left thumb and is wearing a sling on the left upper extremity. - Related Data Allergies/Adverse Reactions: amoxicillin trihydrate [From Augmentin] Allergy (Verified 02/01/20 07:29) oxycodone [From Percocet] Allergy (Verified 02/01/20 07:29) Potassium Clavulanate * [From Augmentin] Allergy (Verified 02/01/20 07:29) Past Medical History - General Information source: Patient, [facility] Records - Social History Smoking Status: Never Smoker Frequency of alcohol use: None Drug Abuse: None Family History: Reviewed & Not Pertinent - Past Medical History Cardiac Medical History: Reports: Hx Hypercholesterolemia, Hx Hypertension, Hx Heart Murmur - Inactive Denies: Hx Coronary Artery Disease, Hx Heart Attack Pulmonary Medical History: Reports: Hx Sleep Apnea Denies: Hx Asthma, Hx Bronchitis, Hx COPD, Hx Pneumonia Neurological Medical History: Denies: Hx Cerebrovascular Accident, Hx Seizures Endocrine Medical History: Reports: Hx Diabetes Mellitus Type 2 Renal/ Medical History: Denies: Hx Peritoneal Dialysis GI Medical History: Reports: Hx Gastroesophageal Reflux Disease Musculoskeletal Medical History: Reports Hx Arthritis, Denies Hx Fibromyalgia, Reports Hx Gout, Reports Hx Musculoskeletal Trauma Past Surgical History: Reports: Hx Hysterectomy, Hx Neurologic Surgery - Left ulner, Hx Orthopedic Surgery, Hx Tonsillectomy - Immunizations Immunizations up to date: Yes Hx Diphtheria, Pertussis, Tetanus Vaccination: Yes Hx Pneumococcal Vaccination: 02/16/13 Review of Systems - Review of Systems Notes: Constitutional: Negative for fever. HENT: Negative for sore throat. Eyes: Negative for visual changes. Cardiovascular: Negative for chest pain. Respiratory: Negative for shortness of breath. Gastrointestinal: Negative for abdominal pain, vomiting or diarrhea. Genitourinary: Negative for dysuria. Musculoskeletal: As per HPI. Skin: Negative for rash. Neurological: Negative for headaches, weakness or numbness. 10 point ROS negative except as marked above and in HPI. Physical Exam - Vital signs Vitals: Temp Pulse Resp BP Pulse Ox 99.4 F 87 18 141/64 H 97 02/02/20 22:36 02/02/20 22:36 02/02/20 22:36 02/02/20 22:36 02/02/20 22:36 - Notes Notes: GENERAL: Well-developed well-nourished female approximately stated age appearing in no acute distress. SKIN: Good turgor no rashes. HEAD: Normocephalic atraumatic. EYES: PERRLA. EOMI. Conjunctivae and sclerae clear. EARS: CANALS AND TMS CLEAR. NOSE: CLEAR. MOUTH: Moist mucosa. Good dentition. No stridor or edema. No drooling. NECK: Supple. No masses or thyromegaly. No adenopathy. Carotids 2+ without bruits. No JVD. BACK: Symmetrical without tenderness. CHEST: Respirations unlabored. Breath sounds clear and symmetrical. HEART: Regular rhythm. No murmur gallop or rub. BREAST EXAM: Right breast is normal to inspection and palpation. Left breast shows no retraction or discharge of the nipple. She has a 3.5 cm area of induration and tenderness posterior to the nipple. There is no palpable axillary adenopathy or tenderness on the left. ABDOMEN: Soft nontender without masses, organomegaly or rebound. Bowel sounds normally active. No bruits. GENITALIA: Deferred. EXTREMITIES: Patient is wearing a sling on her left upper extremity and has a surgical dressing over the left wrist and hand area. No calf tenderness. Cap refill less than 1.5 seconds. Dorsalis pedis and posterior tibial pulses 3+ and symmetrical. NEUROLOGICAL: GCS 15. Alert and oriented x3. Normal gait. Fluent speech. Cranial nerves II through XII intact. Sensorimotor and cerebellar normal. Normal tone. PSYCHIATRIC: Appropriate affect. Course - Re-evaluation Re-evalutation: 02/03/20 09:26 I have advised patient as to abnormalities identified on physical exam and on the ultrasound. I explained to her that we must be sure that this is not a neoplasm. I have drawn a CBC and comprehensive metabolic profile. I have been attempting for some extended period of time to contact her primary care physician unsuccessfully. I will continue to pursue this to arrange immediate follow-up outpatient for appropriate work-up. 02/03/20 10:48 Review of lab studies for the patient here today shows unremarkable co mprehensive metabolic profile. Her white count is mildly elevated probably related to inflammatory process from the surgery she has had on her thumb. She has a mild microcytic anemia which appears to be a longstanding baseline condition. I was able to reach her primary care physician Dr. Syeda Kumar. We discussed current presentation and findings. She will arrange outpatient follow-up within the next several days for further evaluation of the abnormality of the left breast. Findings, clinical impression and plan of treatment have been discussed with patient/family. Understanding of current findings and recommendations has been acknowledged by them and there is agreement regarding disposition and follow-up. - Vital Signs Vital signs: Temp Pulse Resp BP Pulse Ox 99.2 F 80 18 129/71 H 97 02/03/20 05:20 02/03/20 05:20 02/03/20 05:20 02/03/20 05:20 02/03/20 05:20 - Laboratory Result Diagrams: 02/03/20 09:15 02/03/20 09:15 Laboratory results interpreted by me: 02/03/20 02/03/20 09:15 09:15 WBC 13.8 H Hgb 10.8 L Hct 34.0 L MCV 78 L MCH 24.6 L MCHC 31.8 L RDW 21.0 H Absolute Neuts (auto) 10.2 H Absolute Monos (auto) 1.5 H Glucose 133 H - Diagnostic Test Radiology reviewed: Reports reviewed - Left breast ultrasound per radiologist: Abnormal calcifications in the area posterior to the left nipple with suggestion of a hypoechoic region about 1.5 cm's in diameter and some adjacent congestion of ducts. Early elective follow-up with mammography is suggested. Discharge - Discharge Clinical Impression: Pain of left breast Iron (Fe) deficiency anemia Qualifiers: Iron deficiency anemia type: unspecified iron deficiency Qualified Code(s): D50.9 - Iron deficiency anemia, unspecified Condition: Stable Disposition: HOME, SELF-CARE Additional Instructions: You have abnormal findings on ultrasound of your left breast which need to urgent follow-up with your primary care provider. They may recommend a repeat mammogram or further evaluation by breast specialist. Return here as needed for new or worsening symptoms: Pain that is worsening or unimproved Uncontrolled vomiting High fever or shaking chills Overall worsening Referrals: SYEDA KUMAR MD [Primary Care Provider] - Follow up as needed
[2020-02-03 09:27] LABS: ABSOLUTE BASOPHILS # (AUTO) 0.1 10^3/uL (0.0-0.2); ABSOLUTE LYMPHOCYTES (AUTO) 1.9 10^3/uL (0.5-4.7); ABSOLUTE MONOCYTES (AUTO) 1.5 10^3/uL (0.1-1.4); ABSOLUTE NEUT (AUTO) 10.2 10^3/uL (1.7-8.2); BASOPHILS % (AUTO) 0.7 % (0-2); EOSINOPHILS % (AUTO) 0.2 % (0-6); HEMOGLOBIN 10.8 g/dL (12.0-15.5); LYMPHOCYTES % (AUTO) 13.9 % (13-45); MEAN CORPUSCULAR HEMOGLOBIN 24.6 pg (27.0-33.4); MEAN CORPUSCULAR HGB CONC 31.8 g/dL (32.0-36.0); MEAN CORPUSCULAR VOLUME 78 fl (80-97); MONOCYTES % (AUTO) 10.7 % (3-13); PLATELET COUNT 238 10^3/uL (150-450); RED BLOOD COUNT 4.38 10^6/uL (3.72-5.28); SEGMENTED NEUTROPHILS % (AUTO) 74.5 % (42-78); TOTAL CELLS COUNTED % (AUTO) 100 %; WHITE BLOOD COUNT 13.8 10^3/uL (4.0-10.5)
[2020-02-03 09:48] LABS: ALBUMIN 4.1 g/dL (3.5-5.0); ALKALINE PHOSPHATASE 64 U/L (38-126); ANION GAP 8 (5-19); ASPARTATE AMINO TRANSFERASE 15 U/L (14-36); BILIRUBIN,DIRECT 0.3 mg/dL (0.0-0.4); BILIRUBIN,TOTAL 0.7 mg/dL (0.2-1.3); BLOOD UREA NITROGEN 17 mg/dL (7-20); CALCIUM 9.5 mg/dL (8.4-10.2); CARBON DIOXIDE 26 mmol/L (22-30); CHLORIDE 103 mmol/L (98-107); GLUCOSE 133 mg/dL (75-110); POTASSIUM 3.9 mmol/L (3.6-5.0); TOTAL PROTEIN 6.6 g/dL (6.3-8.2)
[2020-02-03 11:05] VITALS: BP 130/64
== END 2020-02-03 11:05 | disposition home or self-care (01) ==
LOC: ER 21:58
DX: N64.4 Mastodynia (principal); D50.9 Iron deficiency anemia, unspecified; I10 Essential (primary) hypertension; E11.9 Type 2 diabetes mellitus without complications; Z98.890 Other specified postprocedural states; Z88.0 Allergy status to penicillin; Z88.6 Allergy status to analgesic agent; Z88.5 Allergy status to narcotic agent
CPT/HCPCS: 36415; 76642; 80053; 85025; 99284

== ENCOUNTER → 2020-02-15 | Outpatient (CLI) | payer MEDICARE, OTHER ==
--- NOTE | 2020-02-15 10:49 | WOMENS IMAGING REPORT ---
EXAM DESCRIPTION: 3D DX MAMMO LEFT UNILAT; U/S BREAST UNILAT LIMITED IMAGES COMPLETED DATE/TIME: 02/15/2020 10:00 am; 02/15/2020 10:31 am REASON FOR STUDY: N64.4 MASTODYNIA; N64.4 N64.4 MASTODYNIA COMPARISON: Priors dating back to 2010. EXAM PARAMETERS: Standard craniocaudal and mediolateral oblique images of the breast recorded using digital acquisition and breast tomosynthesis. True lateral and cone compression views. Read with the assistance of CAD. .[facility] [place] - R2 Epic Manager Version 9.2 LIMITATIONS: None. FINDINGS: BREAST LATERALITY: left MASSES: No suspicious masses. CALCIFICATIONS: No new or suspicious calcifications. ARCHITECTURAL DISTORTION: None. ASYMMETRY: None noted. OTHER: No other significant findings. Ultrasound was compared to a prior from 02/03/2020. Mildly dilated ducts. Superficial 10 x 4 x 10 mm well-circumscribed nodule typical of a sebaceous cyst. No suspicious findings. IMPRESSION: No evidence of malignancy. BREAST DENSITY: b. There are scattered areas of fibroglandular density. BIRAD: ASSESSMENT: 2 Benign findings. RECOMMENDATION: RECOMMENDED FOLLOW UP: Birads 1 or 2: The patient should resume routine screening . SPECIFIC INTERVENTION/IMAGING/CONSULTATION RECOMMENDED:No additional intervention/ imaging/consultati on needed at this time. COMMUNICATION:The imaging findings were not discussed with the patient. Her referring provider has be en notified of the findings. COMMENT: The patient has been notified of the results by letter per SA requirements. Additional no tification policies are in place for contacting patient with suspicious or incomplete findings. Quality ID #225: The [employer] recommends an annual screening mammogram for women aged 40 years or over. This facility utilizes a reminder system to ensure that all patients receive reminder letters, and/or direct phone calls for appointments. This includes reminders for routine scr eening mammograms, diagnostic mammograms, or other Breast Imaging Interventions when appropriate. Th is patient will be placed in the appropriate reminder system. TECHNICAL DOCUMENTATION: FINDING NUMBER: (1) ASSESSMENT: (1) JOB ID: [id number] 2010 [employer]- All Rights Reserved Reading location - IP/workstation name: [email or web address]
--- NOTE | 2020-02-15 10:49 | WOMENS IMAGING REPORT ---
EXAM DESCRIPTION: 3D DX MAMMO LEFT UNILAT; U/S BREAST UNILAT LIMITED IMAGES COMPLETED DATE/TIME: 02/15/2020 10:00 am; 02/15/2020 10:31 am REASON FOR STUDY: N64.4 MASTODYNIA; N64.4 N64.4 MASTODYNIA COMPARISON: Priors dating back to 2010. EXAM PARAMETERS: Standard craniocaudal and mediolateral oblique images of the breast recorded using digital acquisition and breast tomosynthesis. True lateral and cone compression views. Read with the assistance of CAD. .[facility] - R2 [employer] Version 9.2 LIMITATIONS: None. FINDINGS: BREAST LATERALITY: left MASSES: No suspicious masses. CALCIFICATIONS: No new or suspicious calcifications. ARCHITECTURAL DISTORTION: None. ASYMMETRY: None noted. OTHER: No other significant findings. Ultrasound was compared to a prior from 02/03/2020. Mildly dilated ducts. Superficial 10 x 4 x 10 mm well-circumscribed nodule typical of a sebaceous cyst. No suspicious findings. IMPRESSION: No evidence of malignancy. BREAST DENSITY: b. There are scattered areas of fibroglandular density. BIRAD: ASSESSMENT: 2 Benign findings. RECOMMENDATION: RECOMMENDED FOLLOW UP: Birads 1 or 2: The patient should resume routine screening . SPECIFIC INTERVENTION/IMAGING/CONSULTATION RECOMMENDED:No additional intervention/ imaging/consultati on needed at this time. COMMUNICATION:The imaging findings were not discussed with the patient. Her referring provider has be en notified of the findings. COMMENT: The patient has been notified of the results by letter per SA requirements. Additional no tification policies are in place for contacting patient with suspicious or incomplete findings. Quality ID #225: The [employer] recommends an annual screening mammogram for women aged 40 years or over. This facility utilizes a reminder system to ensure that all patients receive reminder letters, and/or direct phone calls for appointments. This includes reminders for routine scr eening mammograms, diagnostic mammograms, or other Breast Imaging Interventions when appropriate. Th is patient will be placed in the appropriate reminder system. TECHNICAL DOCUMENTATION: FINDING NUMBER: (1) ASSESSMENT: (1) JOB ID: [id number] 2010 [employer]- All Rights Reserved Reading location - IP/workstation name: [email or web address]-
== END ==
LOC: WI 09:31
PROVIDERS: ATTEND Family Medicine
DX: N64.4 Mastodynia (principal)
CPT/HCPCS: 76642; 77065; G0279

== ENCOUNTER 2020-03-24 20:01 | Emergency (ER) | payer MEDICARE, OTHER ==
[2020-03-24 20:10] VITALS: BP 111/48
--- NOTE | 2020-03-24 20:54 | ER Document Report ---
ED General - General Chief Complaint: Headache >24 hrs old Stated Complaint: COUGH/LOSS OF TASTE Time Seen by Provider: 03/24/20 20:18 Primary Care Provider: SYEDA GARRETT MD [Primary Care Provider] - Follow up as needed Mode of Arrival: Ambulatory Information source: Patient Notes: Patient is a 69-year-old -[place] female who comes in today with body ac hes, frontal headache, metallic taste in her mouth. She recently had a COVID-19 test which was negative. No fevers or shaking chills. No nausea or vomiting. She does not have any loss of taste or smell. TRAVEL OUTSIDE OF THE [place] IN LAST 30 DAYS: No - Related Data Allergies/Adverse Reactions: amoxicillin trihydrate [From Augmentin] Allergy (Verified 03/24/20 20:28) oxycodone [From Percocet] Allergy (Verified 03/24/20 20:28) Potassium Clavulanate * [From Augmentin] Allergy (Verified 03/24/20 20:28) Home Medications: clopidogrel, deon, lisinopril, metformin, amlodipine, atorvastatin Past Medical History - Social History Smoking Status: Never Smoker Frequency of alcohol use: None Drug Abuse: None Family History: Reviewed & Not Pertinent - Past Medical History Cardiac Medical History: Reports: Hx Hypercholesterolemia, Hx Hypertension, Hx Heart Murmur - Inactive Denies: Hx Coronary Artery Disease, Hx Heart Attack Pulmonary Medical History: Reports: Hx Sleep Apnea Denies: Hx Asthma, Hx Bronchitis, Hx COPD, Hx Pneumonia Neurological Medical History: Denies: Hx Cerebrovascular Accident, Hx Seizures Endocrine Medical History: Reports: Hx Diabetes Mellitus Type 2 Renal/ Medical History: Denies: Hx Peritoneal Dialysis GI Medical History: Reports: Hx Gastroesophageal Reflux Disease Musculoskeletal Medical History: Reports Hx Arthritis, Denies Hx Fibromyalgia, Reports Hx Gout, Reports Hx Musculoskeletal Trauma Past Surgical History: Reports: Hx Hysterectomy, Hx Neurologic Surgery - Left ulner, Hx Orthopedic Surgery, Hx Tonsillectomy - Immunizations Immunizations up to date: Yes Hx Diphtheria, Pertussis, Tetanus Vaccination: Yes Hx Pneumococcal Vaccination: 02/16/13 Review of Systems - Review of Systems Notes: Constitutional: No fevers. No chills. EENT: No eye redness. No eye pain. No ear pain. No sore throat. Cardiovascular: No chest pain. No palpitations. Respiratory: No cough. No shortness of breath. No respiratory distress. Gastrointestinal: No abdominal pain. No nausea, vomiting, or diarrhea. Genitourinary: Atraumatic. No lesions. No pain. No discharge. Musculoskeletal: Atraumatic. No swelling. No deformities. Skin: No rash or lesions. Lymphatic: No swollen lymph nodes. Neurologic: +headache. No syncope. Psychiatric: No suicidal or homicidal ideation. Physical Exam - Vital signs Vitals: Temp Pulse Resp BP Pulse Ox 99.6 F 94 16 111/48 L 97 03/24/20 20:08 03/24/20 20:08 03/24/20 20:08 03/24/20 20:08 03/24/20 20:08 - Notes Notes: General: Well-developed, well-nourished. In no acute distress. Non-toxic appearing. Cardiac: Well-perfused. Regular rate and rhythm. No murmurs, rubs, or gallops. Pulmonary: No respiratory distress. No cyanosis. Bilateral lung hayes are clear to auscultation. Abdominal: Non-distended. Non-rigid. Bowels sounds are present in all four quadrants. No guarding or rebound. HEENT: Head is atraumatic. Conjunctivae not reddened. No tearing. PERRL. EOMI. Orbits atraumatic. No periorbital swelling or erythema. Oropharynx is without erythema, swelling, or exudates. Mild frontal sinus tenderness to percussion Neck: Supple. No adenopathy. No meningismus. Dermatologic: Warm with good turgor. No rash. Atraumatic. Chest: Atraumatic. No chest wall tenderness to palpation. Musculoskeletal: Moves all extremities well. No range of motion deficits. no muscular or joint tenderness. No paraspinal muscle tenderness. no midline spinal tenderness or step-off. Genitourinary: Examination deferred Neurologic: No gross neurologic deficits. Psychiatric: Normal mood. Course - Re-evaluation Re-evalutation: 03/24/20 20:54 Patient does not look ill. Her vital signs are normal. She is recently been tested for Covid and is negative. She primarily has a headache with sinus pressure and a bad taste in her mouth. We will go ahead and treat her with some antibiotics which would cover her for sinus type infection and strep. - Vital Signs Vital signs: Temp Pulse Resp BP Pulse Ox 99.6 F 94 16 111/48 L 97 03/24/20 20:08 03/24/20 20:08 03/24/20 20:08 03/24/20 20:08 03/24/20 20:08 Discharge - Discharge Clinical Impression: Sinus headache Condition: Good Disposition: HOME, SELF-CARE Instructions: Viral Syndrome ([facility]), Headache ([facility]) Prescriptions: Clarithromycin [Biaxin 500 mg Tablet] 1 tab PO Q12 10 Days #20 tab Fluticasone Propionate [Flonase Nasal Pine 50 Mcg/Pine 16 gm] 2 sprays NASL Q12 #1 inhaler Referrals: SYEDA GARRETT MD [Primary Care Provider] - Follow up as needed
[2020-03-24] MEDS ORDERED: HYDROCODONE/ACETAMINOPHEN 5-325 MG (6 TAB/ER DISP) PO PRN (20:58)
== END 2020-03-24 21:05 | disposition home or self-care (01) ==
LOC: ER 20:01
DX: R51.9 Headache, unspecified (principal); R09.81 Nasal congestion; R43.8 Other disturbances of smell and taste; M79.10 Myalgia, unspecified site; R05 Cough; E78.00 Pure hypercholesterolemia, unspecified; I10 Essential (primary) hypertension; E11.9 Type 2 diabetes mellitus without complications; Z90.710 Acquired absence of both cervix and uterus
CPT/HCPCS: 99283; A9270

== ENCOUNTER 2020-05-04 22:15 | Emergency (ER) | payer MEDICARE, OTHER ==
[2020-05-05] MEDS ORDERED: KETOROLAC TROMETHAMINE 60 MG/2 ML SDV IM ONE (00:34)
[2020-05-05] MEDS ORDERED: DEXAMETHASONE SOD PHOS INJ 10 MG/1 ML VIAL IM ONE (00:34)
--- NOTE | 2020-05-05 00:38 | ER Document Report ---
HPI - HPI Time Seen by Provider: 05/05/20 00:30 Pain Level: 3 Context: Patient is a 69-year-old female who presents emergency department with a chief complaint of low back pain. Patient states that her symptoms started about 4 days ago. Patient had a colonoscopy today and has been off her blood thinners. Patient reports that she has a history of osteo-arthritis. Denies any numbness or tingling. Denies any loss of bladder or bowel function. No history of IV dr ug use. No saddle paresthesias. - ROS Systems Reviewed and Negative: Yes All other systems reviewed and negative - RESPIRATORY Respiratory: DENIES: Trouble Breathing, Coughing - GASTROINTESTINAL Gastrointestinal: DENIES: Abdominal Pain, Nausea, Patient vomiting - URINARY Urinary: DENIES: Dysuria, Urgency, Frequency - REPRODUCTIVE Reproductive: DENIES: : - MUSCULOSKELETAL Musculoskeletal: REPORTS: Back Pain - DERM Skin Color: Normal Skin Problems: None Past Medical History - Social History Smoking Status: Unknown if Ever Smoked Family History: Reviewed & Not Pertinent - Past Medical History Cardiac Medical History: Reports: Hx Hypercholesterolemia, Hx Hypertension, Hx Heart Murmur - Inactive Denies: Hx Coronary Artery Disease, Hx Heart Attack Pulmonary Medical History: Reports: Hx Sleep Apnea Denies: Hx Asthma, Hx Bronchitis, Hx COPD, Hx Pneumonia Neurological Medical History: Denies: Hx Cerebrovascular Accident, Hx Seizures Endocrine Medical History: Reports: Hx Diabetes Mellitus Type 2 Renal/ Medical History: Denies: Hx Peritoneal Dialysis GI Medical History: Reports: Hx Gastroesophageal Reflux Disease Musculoskeletal Medical History: Reports Hx Arthritis, Denies Hx Fibromyalgia, Reports Hx Gout, Reports Hx Musculoskeletal Trauma Past Surgical History: Reports: Hx Hysterectomy, Hx Neurologic Surgery - Left ulner, Hx Orthopedic Surgery, Hx Tonsillectomy - Immunizations Immunizations up to date: Yes Hx Diphtheria, Pertussis, Tetanus Vaccination: Yes Hx Pneumococcal Vaccination: 02/16/13 Vertical Provider Document - CONSTITUTIONAL Agree With Documented VS: Yes Exam Limitations: No Limitations General Appearance: No Apparent Distress - INFECTION CONTROL TRAVEL OUTSIDE OF THE [place] IN LAST 30 DAYS: No - HEENT HEENT: Atraumatic, Normocephalic, PERRLA - NECK Neck: Normal Inspection - RESPIRATORY Respiratory: Breath Sounds Normal, No Respiratory Distress - CARDIOVASCULAR Cardiovascular: Regular Rate, Regular Rhythm Pulses: Normal: Radial - GI/ABDOMEN Gastrointestinal: Abdomen Soft, Abdomen Non-Tender - MUSCULOSKELETAL/EXTREMETIES Musculoskeletal/Extremeties: FROM, Tender - mid lower back, No Edema - NEURO Level of Consciousness: Awake, Alert, Appropriate Motor/Sensory: No Motor Deficit, No Sensory Deficit - DERM Integumentary: Warm, Dry, No Rash Course - Re-evaluation Re-evalutation: 05/05/20 00:36 Differential diagnosis for back pain includes muscle spasm, muscle strain, slipped disc cauda equina syndrome, vertebral fracture, vertebral tumor, epidural abscess, pyelonephritis, or AAA. Based on history and exam, the most likely etiology of the patient's back pain is osteoarthritis of the back. Emergent MRI is not indicated at this time because the patient does not have new weakness, or cauda equina syndrome. Patient does not have bladder or bowel dysfunction. Patient does not have history of IV drug use, therefore, I do not suspect an epidural abscess. Patient does not have recent weight loss or night sweats, and does not have a known history of cancer. Patient will receive Decadron and Toradol. Follow-up precautions were given. Verbal discharge instructions were given to the patient. They verbalized understanding. They are stable for discharge. - Vital Signs Vital signs: Temp Pulse Resp BP Pulse Ox 99.2 F 82 16 133/72 H 99 05/05/20 00:28 05/05/20 00:28 05/05/20 00:28 05/05/20 00:28 05/05/20 00:28 - Laboratory Results Critical Laboratory Results Reviewed: No Critical Results - Radiology Results Critical Radiology Results Reviewed: No Critical Results Discharge - Discharge Clinical Impression: Back pain Qualifiers: Back pain location: low back pain Chronicity: acute Back pain laterality: midline Sciatica presence: without sciatica Qualified Code(s): M54.5 - Low back pain Condition: Stable Disposition: HOME, SELF-CARE Instructions: Low Back Pain ([facility]) Additional Instructions: You were seen today in the emergency department for back pain. Your back pain is most consistent with sciatic nerve pain. You received a steroid injection and a pain medication injection here in the emergency department. A you may take acetaminophen 1000 mg every 6 hours as needed for the pain. You may also buy [id number] Aspercreme with lidocaine and apply to the area per box instructions. If you develop a fever greater than 100.4 F, lose bowel or bladder function, are unable to walk, or have any symptoms that are worrisome to you, please return to the emergency department. Follow-up with your primary care provider in regards to this visit. Referrals: SYEDA GARRETT MD [Primary Care Provider] - Follow up in 3-5 days
[2020-05-05 01:42] VITALS: BP 118/52
== END 2020-05-05 01:57 | disposition home or self-care (01) ==
LOC: ER 22:15
DX: M54.5 Low back pain (principal); I10 Essential (primary) hypertension; E11.9 Type 2 diabetes mellitus without complications
CPT/HCPCS: 99284; 96372; J1885; J1100